=== PATIENT | female | born 1955 | race African-American/Black ===

== ENCOUNTER 2024-10-23 02:06 | Emergency (ER) | payer MEDICARE, SELFPAY ==
--- NOTE | ~2024-10-23 | CT_ITS ---
EXAMINATION: CT cervical spine wo con DATE: 10/23/2024 02:50 INDICATION: Neck pain after fall TECHNIQUE: Computed tomography (CT) of the cervical spine was performed without intravenous contrast. The dose-length product was 504 mGy-cm. Automated exposure control and iterative reconstruction tech [employer] were employed. COMPARISON: None FINDINGS: Straightening of cervical lordosis. Craniovertebral junction within normal limits. Odontoid process is normal. Vertebral body heights are maintained. No acute fracture, subluxation or dislocat ion. Lateral masses normally aligned. Craniovertebral junction within normal limits. Spinous processe s are normal. No evidence for perched facet. IMPRESSION: 1. No acute abnormality of the cervical spine. Reviewed, dictated and finalized at location B.
--- NOTE | ~2024-10-23 | XR_ITS ---
XR chest 2V 10/23/2024 02:38 Indication: Dizziness Procedure: 2 view chest Comparison: No prior studies for comparison. Findings: Borderline heart size. Crowding of the pulmonary vessels. No focal air space disease, pulmo nary edema, pleural effusion or suspected pneumothorax. Impression: 1: No acute cardiopulmonary disease. Reviewed, dictated and finalized at location B. Impression: 1: No acute cardiopulmonary disease.
--- NOTE | ~2024-10-23 | CT_ITS ---
EXAMINATION: CT BRAIN W/O DATE: 10/23/2024 02:49 INDICATION: Status post fall. Syncopal episode after striking for head. TECHNIQUE: Computed tomography (CT) of the head was performed without intravenous contrast. The dose- length product was 681.00 mGy-cm. Automated exposure control and iterative reconstruction technique w ere employed. COMPARISON: No prior studies for comparison. FINDINGS: Normal brain parenchymal volume for age. Normal soni-white differentiation. No acute intrac ranial hemorrhage, infarction, mass or mass effect. There is a right frontal scalp laceration with sw elling. No ventriculomegaly or midline shift. Midline sagittal images demonstrate a normal corpus callosum, c raniovertebral junction and sella turcica. Basilar cisterns are patent. Paranasal sinuses and mastoids are pneumatized. No depressed skull fractures. IMPRESSION: 1. No acute intracranial abnormality. Reviewed, dictated and finalized at location B.
--- NOTE | ~2024-10-23 | XR_ITS ---
XR pelvis 1-2V 10/23/2024 03:09 Indication: Status post fall. Procedure: AP portable chest Comparison: No prior studies for comparison. Findings: Pelvic rings intact. There is coarse calcifications in the pelvis, possibly calcified uteri ne fibroids. There are pelvic phleboliths. No acute fracture or traumatic malalignment. There is mild osteoarthritis of the hips. Impression: 1: No acute fracture. Reviewed, dictated and finalized at location B. Impression: 1: No acute fracture.
[2024-10-23 02:06] VITALS: BP 180/89; PULSE 97; RESP 23; TEMP 36.2; O2SAT 96
[2024-10-23 02:11] VITALS: PULSE 93
--- NOTE | 2024-10-23 02:17 | ECG_ITS ---
Test Date: 2024-10-23 02:09:18 Measurements Intervals [place] Rate: 91 P: 53 IA: 138 QRS: 57 QRSD: 98 T: 38 QT: 360 QTc: 443 Interpretive Statements SINUS RHYTHM NONSPECIFIC T-WAVE ABNORMALITY No previous ECG available for comparison Electronically Signed On 10-23-2024 17:22:23 CDT by Angus Alonzo D.O
--- NOTE | 2024-10-23 02:35 | ED.SYNCOPE ---
HPI - Syncope General Chief Complaint: Syncope Stated Complaint: SYNCOPAL EPISODE, LAC TO EYEBROW Time Seen by Provider: 10/23/24 02:15 History of Present Illness HPI narrative: Patient states she was walking down the stairs to the bathroom when she suddenly started feeling lightheaded, and woke up on the floor, she has pain to her head and denies pain elsewhere. Per EMS she had seemed slightly post-ictal. She never had any chest pain or shortness of breath. Review of Systems Review of Systems: All systems reviewed & are unremarkable except as noted in HPI and below Exam Narrative: EXAMINATION OF ORGAN SYSTEMS/BODY AREAS: Constitutional: Vital signs per nursing GENERAL:[No acute distress, non-toxic appearing.] HEAD: Injury to face EYES: EOMI, conjunctiva normal ENT: Very bad hearing. 6cm lac to R forehead LUNGS: Nonlabored breathing. HEART: [Regular rate and rhythm] ABD: [Soft], [nontender to palpation] EXT: Normal range of motion SKIN: Laceration forehead NEURO: [Alert and oriented x 3. No gross focal sensory or strength deficits.] Clear speech. PSYCH: Normal affect Course Vital Signs Vital signs: Vital Signs Temperature 97.1 F L 10/23/24 02:06 Pulse Rate 97 10/23/24 02:06 Respiratory Rate 23 H 10/23/24 02:06 Blood Pressure 180/89 H 10/23/24 02:06 Pulse Oximetry 96 10/23/24 02:06 Temperature 97.1 F L 10/23/24 02:06 Pulse Rate 93 10/23/24 02:11 Respiratory Rate 23 H 10/23/24 02:06 Blood Pressure 180/89 H 10/23/24 02:06 Pulse Oximetry 96 10/23/24 02:06 Procedures Laceration Laceration 1: Date: 10/23/24 Time: 03:34 Site: face Side (If applicable): right Size (cm): 6 Description: linear Depth: simple, single layer Local Anesthetic: lidocaine 1% Amount of anesthesia used (mL): 3 Pre-repair: wound explored, irrigated, irrigated extensively and deep structures intact ====== Skin Level ====== Skin layer closed with: vicryl Size (cm): 5-0 Number of sutures: 6 Technique: simple, interrupted ====== Subcutaneous Layer ====== ====== Muscle Layer ====== ====== Tendon Layer ====== MDM - Syncope MDM Narrative Medical decision making narrative: Patient presents here after she had an episode of syncope while going to the bathroom, and fell and hit her head, she does have a slight headache, otherwise denies any other complaints. Has not had symptoms like this before, only past medical history is hypertension however she just moved here, has not seen a doctor herself in years, and has been out of her medications. She does have a forehead laceration which is closed, I did obtain broad workup including imaging of head, spine, chest and pelvis, which are thankfully unremarkable for acute abnormality. Labs drawn by myself with arterial stick under ultrasound guidance, are unremarkable. EKG - 12-Lead: Interpreted by me. Limited by artifact. [Sinus rhythm]. Rate 91. [Normal] axis. NC-interval [normal]. QRS duration [normal]. QTc [normal]. [No ST segment elevation or depression]. [T-wave normal]. Impression: No EKG evidence of acute ischemia or dysrhythmi Patient is currently asymptomatic, ambulating without issue, and per patient and family at bedside, they are comfortable with outpatient management, I will provide information for follow-up to PCP, Neurology, Cardiology, as well start her on blood pressure medication. Strict return precautions provided.a. Lab Data 10/23/24 03:24 10/23/24 03:59 Labs: Lab Results 10/23/24 10/23/24 Range/Units 03:24 03:59 WBC 10.9 H (4.5-10.0) K/mm3 RBC 5.47 H (4.2-5.4) M/mm3 Hgb 15.2 H (12.0-15.0) g/dL Hct 47.6 H (37.0-47.0) % MCV 87.0 (80-100) fl MCH 27.8 (26-34) pg MCHC 31.9 L (32-36) g/dl RDW 14.8 H (11.5-14.5) % Plt Count 373 (150-375) k/mm3 MPV 9.7 (7.4-10.4) fl Immature Gran % (Auto) 0.6 H (0-0.5) % Neut % (Auto) 60.8 (45.5-73.1) % Lymph % (Auto) 27.6 (18.3-44.2) % [place] % (Auto) 9.0 H (2.6-8.5) % Eos % (Auto) 1.6 (0-4.4) % Baso % (Auto) 0.4 (0.2-1.2) % Lymph # (Auto) 3.00 (0.9-3.2) K/mm3 [place] # (Auto) 1.0 H (0.1-0.6) K/mm3 Eos # (Auto) 0.2 (0-0.3) K/mm3 Baso # (Auto) 0.0 (0.0-0.1) K/mm3 Abs Immat Gran (auto) 0.07 H (0.00-0.031) K/mm3 Absolute Neuts (auto) 6.6 (1.3-6.7) K/mm3 Absolute Nucleated RBC 0.000 (0.0-0.012) K/mm3 Nucleated RBC % 0.0 (0.0-0.2) % Sodium 131 L (137-145) mmol/L Potassium 3.9 (3.4-5.0) mmol/L Chloride 100 (98-107) mmol/L Carbon Dioxide 23 (22-30) mmol/L Anion Gap 8 (4-12) mmol/L BUN 24 H (7-17) mg/dL Creatinine 0.99 (0.7-1.0) mg/dL Estim Creat Clear Calc 57 ml/min Estimated GFR 56 L (59 - ) Glucose 130 H (65-110) mg/dL Lactic Acid 1.3 (0.7-2.0) mmol/L Calcium 9.4 (8.4-10.2) mg/dL Total Bilirubin 0.4 (0.2-1.3) mg/dL AST 35 (14-36) U/L ALT 23 (6-35) U/L Alkaline Phosphatase 88 (38-126) U/L Total Protein 7.9 (6.3-8.2) g/dL Albumin 4.1 (3.5-5.1) g/dL Discharge Plan Discharge Clinical Impression: Syncope, Facial laceration, Chronic hypertension Patient Disposition: Home Condition: Stable Instructions: Syncope (ED), Head Injury (ED), Chronic Hypertension (ED), Facial Laceration (ED) Additional Instructions: Please follow up with a primary care doctor, neurologist and medical billing specialist; keep the wound clean, start taking the hypertension medications as prescribed. If you have another similar episode, please return to the emergency room. Patient Language: [place] Prescriptions: New losartan 25 mg tablet 25 mg PO DAILY Qty: 30 0RF losartan 25 mg tablet 25 mg PO DAILY Qty: 30 0RF Follow-up/Referrals: Bhavna Villegas DO [Physician] - 2 Days Josue Esteves MD [Physician] - 2 Days Shadi Swain MD [Physician] - 2 Days
[2024-10-23 03:30] LABS: Hematocrit 47.6 % (37.0-47.0); Hemoglobin 15.2 g/dL (12.0-15.0); Immature Granulocyte Percent A 0.6 % (0-0.5); Lymphocytes Absolute Auto 3.00 K/mm3 (0.9-3.2); Mean Corpuscular HGB Conc 31.9 g/dl (32-36); Mean Corpuscular Hemoglobin 27.8 pg (26-34); Mean Corpuscular Volume 87.0 fl (80-100); Nucleated Red Blood Cells Absolute Auto 0.000 K/mm3 (0.0-0.012); Nucleated Red Blood Cells Perc 0.0 % (0.0-0.2); Platelet Count Result 373 k/mm3 (150-375); Red Blood Count 5.47 M/mm3 (4.2-5.4); White Blood Count 10.9 K/mm3 (4.5-10.0)
[2024-10-23 04:28] LABS: Alanine Aminotransferase 23 U/L (6-35); Albumin Level 4.1 g/dL (3.5-5.1); Alkaline Phosphatase 88 U/L (38-126); Anion Gap 8 mmol/L (4-12); Aspartate Amino Transferase 35 U/L (14-36); Bilirubin,Total 0.4 mg/dL (0.2-1.3); Blood Urea Nitrogen 24 mg/dL (7-17); Calcium 9.4 mg/dL (8.4-10.2); Carbon Dioxide 23 mmol/L (22-30); Chloride 100 mmol/L (98-107); Estimated CRCL calculation 57 ml/min; Estimated Glomerular Filt Rate 56; Glucose 130 mg/dL (65-110); Potassium 3.9 mmol/L (3.4-5.0); Sodium 131 mmol/L (137-145); Total Protein 7.9 g/dL (6.3-8.2)
== END 2024-10-23 05:08 | disposition home or self-care (01) ==
PROVIDERS: Emergency Provider Emergency Medicine; PCP Family Medicine
DX: R55 Syncope and collapse (principal); S01.81XA Laceration without foreign body of other part of head, initial encounter; I10 Essential (primary) hypertension; R94.31 Abnormal electrocardiogram [ECG] [EKG]; W10.9XXA Fall (on) (from) unspecified stairs and steps, initial encounter
CPT/HCPCS: 12013; 36415; 70450; 71046; 72125; 72170; 80053; 83605; 85025; 93005; 99284